=== PATIENT | male | born 1960 | race African-American/Black ===

== ENCOUNTER 2017-01-17 21:13 | Emergency (ER) | payer OTHER ==
[~2017-01-17] VITALS: Ht 195.6 cm; Wt 120.0 kg
[2017-01-17 21:16] VITALS: BP 125/75; PULSE 86; RESP 16; TEMP 98.6; O2SAT 98
--- NOTE | 2017-01-17 21:42 | PD ---
HPI Chief Complaint: Pain: Acute or Chronic Time Seen by Provider: 21:41 Travel History International Travel<30 days: No Contact w/Intl Traveler<30days: No Traveled to known affect area: No History of Present Illness HPI 56-year-old male presents to emergency department for evaluation of right lower extremity pain intermittently occurring over the last 3-4 weeks. Patient states at times he feels as though it is a sharp stinging pain. He states sometimes it cristina. Denies any injury. Denies any swelling. He cannot recall any exacerbating or alleviating factors. 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 He states he no longer sits on his wallet and now it is happening in his distal extremity. Patient has no other symptoms to report. History Past Medical Histgory Medical History: Denies Significant Hx Social History Alcohol Use: Yes (6 pack daily) Tobacco Use: No Allergies-Medications (Allergen,Severity, Reaction): Coded Allergies: Lisinopril (Verified Allergy, Severe, Cough, 01/17/17) Reported Meds & Prescriptions Reported Meds & Active Scripts Active No Active Prescriptions or Reported Medications Review of Systems Except as stated in HPI: all other systems reviewed are Neg Physical Exam Narrative GENERAL: Well-nourished, well-developed patient in no acute distress SKIN: Focused skin assessment warm/dry. HEAD: Normocephalic. EYES: No scleral icterus. No injection or drainage. NECK: Supple, trachea midline. No JVD or lymphadenopathy. CARDIOVASCULAR: Regular rate and rhythm without murmurs, gallops, or rubs. RESPIRATORY: Breath sounds equal bilaterally. No accessory muscle use. GASTROINTESTINAL: Abdomen soft, non-tender, nondistended. MUSCULOSKELETAL: No cyanosis, or edema. No erythema. No tenderness elicited palpation of the affected extremity. Negative Homans sign. Distal pulses are palpable. BACK: Nontender without obvious deformity. No CVA tenderness. Data Data Last Documented VS Vital Signs Date Time Temp Pulse Resp B/P Pulse Ox O2 Delivery O2 Flow Rate FiO2 01/17/17 21:16 98.6 86 16 125/75 98 Room Air MDM Medical Screen Exam Complete: Yes Emergency Medical Condition: No Differential Diagnosis Neuropathy versus PID versus sciatica versus less likely DVT versus osteoarthritic Narrative Course 56-year-old male presents to emergency department for evaluation. Patient appears without distress. There is an area in the distal lower extremity on the right that he reports the sensation of pain however it is not exacerbated or alleviated by anything. It is consistent with his previous sciatic pain only in a different area. I have palpated light and deep over the lower extremity with no acute findings. Patient has no pain exacerbated by this. This is likely a neuropathy. Patient is encouraged to follow-up with his primary care provider. I have discussed with them possible medications that he could try however I would not be started in the emergency department. A medical screening exam was performed: At the time of evaluation the presenting medical condition was determined not to be of an emergent nature. The patient was given the option of receiving additional care, but declined. Patient was given options for additional community resources from which to obtain care. The Patient Has Been advised to seek medical attention for their presenting complaint. The patient has been advised to return to the ER at any time if an emergent condition develops. Primary Impression: Neuropathy Additional Impression: Encounter for medical screening examination Scripts No Active Prescriptions or Reported Meds Condition: Caty Tony January 17, 2017 21:42
== END 2017-01-17 21:48 | disposition left against medical advice (07) ==
LOC: NEPK 21:13
DX: G62.9 Polyneuropathy, unspecified (principal)
CPT/HCPCS: 99281